=== PATIENT | female | born 1955 | race Caucasian/White ===

== ENCOUNTER 2022-02-06 22:11 | Emergency (ER) | payer OTHER ==
[~2022-02-06] VITALS: Ht 160 cm; Wt 101.2 kg
[2022-02-06 23:07] VITALS: BP 110/70
--- NOTE | 2022-02-06 23:20 | NUR ---
Blood for labwork drawn from right arm per call out operator. Patient tolerated well.
[2022-02-06 23:29] LABS: BASOPHILS % (AUTO) 0.4 % (0.0-2.0); EOSINOPHILS # (AUTO) 0.1 K/uL (0-0.4); EOSINOPHILS % (AUTO) 1.6 % (0.0-4.0); HEMATOCRIT 33.3 % (36-48); HEMOGLOBIN 10.7 g/dL (12.0-16.0); LYMPHOCYTES % (AUTO) 10.8 % (20.5-51.1); MEAN CORPUSCULAR HEMOGLOBIN 31 pg (27-31); MEAN CORPUSCULAR HGB CONC 32 g/dL (33-37); MONOCYTES # (AUTO) 0.7 K/uL (0.8-1.0); MONOCYTES % (AUTO) 7.9 % (1.7-9.3); NEUTROPHILS % (AUTO) 79.3 % (42.2-75.2); PLATELET COUNT (AUTO) 259 K/uL (140-450); RED BLOOD CELL COUNT(AUTO) 3.47 MIL/uL (4.20-5.40); RED CELL DISTRIBUTION WIDTH 15.2 % (11.6-13.7); WHITE BLOOD COUNT (AUTO) 8.9 K/uL (4.8-10.8)
[2022-02-06 23:47] LABS: ALBUMIN 3.3 g/dL (3.4-5.0); ANION GAP 10.2 (8-16); CARBON DIOXIDE 28.8 mmol/L (21-32); CREATININE 0.6 mg/dL (0.6-1.3); TOTAL BILIRUBIN 0.3 mg/dL (0.0-1.0)
--- NOTE | 2022-02-07 00:22 | NUR ---
PT TAKEN TO BED 6
[2022-02-07] MEDS ORDERED: ACET-9535 PO (01:05)
[2022-02-07] MEDS ORDERED: BACL10TA4 PO (01:05)
[2022-02-07] MEDS ORDERED: [UNRECOGNIZED DRUG - CODE] PO ×2 (01:05)
[2022-02-07] MEDS ORDERED: MORPHINE SULFATE 4 MG/ML SYR IM ONE (01:05)
[2022-02-07] MEDS ORDERED: BACTO TP (01:05)
[2022-02-07] MEDS ORDERED: PANT40EC PO (01:05)
[2022-02-07] MEDS ORDERED: FERR-212 PO (01:05)
[2022-02-07] MEDS ORDERED: ASCO500T95 PO (01:05)
[2022-02-07] MEDS ORDERED: VITAMIN D (01:05)
[2022-02-07] MEDS ORDERED: BUPR-10 PO (01:05)
[2022-02-07] MEDS ORDERED: CITA20TA15 PO (01:05)
[2022-02-07] MEDS ORDERED: MILK175T2 PO (01:05)
[2022-02-07] MEDS ORDERED: LISI2.5T12 PO (01:05)
[2022-02-07] MEDS ORDERED: GABA100C PO (01:05)
[2022-02-07] MEDS ORDERED: METO25TE2 PO (01:05)
[2022-02-07] MEDS ORDERED: ZINC50TA76 PO (01:05)
[2022-02-07] MEDS ORDERED: PRETAB PO (01:05)
[2022-02-07 01:12] LABS: APPEARANCE,URINE CLEAR (CLEAR); BILIRUBIN,URINE NEGATIVE (NEGATIVE); BLOOD, URINE TRACE-L (NEGATIVE); COLOR,URINE YELLOW (YELLOW); LEUKOCYTE ESTERASE ,URINE TRACE (NEGATIVE); NITRITE, URINE NEGATIVE (NEGATIVE); UGLUCOSE 3+ (NEGATIVE)
--- NOTE | 2022-02-07 02:40 | NUR ---
66 Y/O F BIBS FROM HOME C/O SHARP AND THROBBING PAIN ON RUQ X 1 WEEK. LAST BM TODAY, SOFT. DENIES INJURY. PT TOOK OXY TODAY WITH NO RELIF. PMH: MEDS: SEE MED REC NKDA
[2022-02-07] MEDS ORDERED: IBUP-2213 PO (03:47)
[2022-02-07] MEDS ORDERED: ACET-8386 PO (03:47)
[2022-02-07] MEDS ORDERED: CIPR500T4 PO (03:47)
[2022-02-07 04:00] VITALS: BP 110/70
--- NOTE | 2022-02-07 04:00 | NUR ---
Patient discharged with v/s stable. Written and verbal after care instructions given and explained. Patient alert, oriented and verbalized understanding of instructions. Ambulatory with steady gait. All questions addressed prior to discharge. ID band removed. Patient advised to follow up with PMD. Rx of cipro, norco 5/325 given. Patient educated on indication of medication including possible reaction and side effects. Opportunity to ask questions provided and answered.
== END 2022-02-07 04:00 | disposition home or self-care (01) ==
LOC: MED 22:11
DX: N39.0 Urinary tract infection, site not specified (principal); Z98.890 Other specified postprocedural states; Z79.899 Other long term (current) drug therapy; Z79.891 Long term (current) use of opiate analgesic
CPT/HCPCS: 36415; 74176; 80053; 81001; 81025; 83690; 85025; 87086; 96372; 99284; J2270